=== PATIENT | female | born 1945 | race Native Hawaiian/Other Pacific Islander ===

== ENCOUNTER 2018-05-17 10:01 | Outpatient (CLI) | payer SELFPAY | END 2018-05-17 10:02 | disposition home or self-care (01) | LOC: C.MAMMO 10:01 | DX: Z12.31 Encounter for screening mammogram for malignant neoplasm of breast (principal) ==

== ENCOUNTER 2018-05-22 06:39 | Day surgery (SDC) | payer SELFPAY ==
[2018-01-22 08:57] VITALS: BMI 22.9
[~2018-05-22 06:39] MED LIST: Ciprofloxacin 0.3% OPTH SOLN OS SCH; Cyclopentolate 1% Opth (2 ml) OS SCH; Ketorolac Tromethamine 0.5% Opth Soln (3 ml) OS SCH; Lactated Ringer's 500 ML IV ONE; Phenylephrine 2.5% Opht Soln OS SCH; Tropicamide 0.5% Opht Sol OS SCH
[2018-05-22] MEDS ORDERED: Povidone Iodine Ophthalmic 5% Soln ONE (07:23)
[2018-05-22] MEDS ORDERED: Carbachol 0.01% IO ONE (07:23)
[2018-05-22] MEDS ORDERED: Hyaluronidase Human, Recombi 150 U/ML VIAL ONE (07:24)
[2018-05-22] MEDS ORDERED: Tetracaine 0.5% Ophth (OR ONLY) ONE (07:24)
[2018-05-22] MEDS ORDERED: Chondroitin/Hyaluronate Opth Syringe KIT (0.55 ml-0.5 ml) IO ONE (07:24)
[2018-05-22] MEDS ORDERED: Lidocaine 2% MPF (5 ml) Inj ONE (07:25)
[2018-05-22] MEDS ORDERED: Tropicamide 1% Opht SOLUTION OS ONE (07:30)
[2018-05-22] MEDS ORDERED: Lactated Ringer's 1,000 ML IV ONE (07:56)
[2018-05-22] MEDS ORDERED: Midazolam 2 MG/2 ML VIAL ONE (08:35)
[2018-05-22] MEDS: Tobramycin/Dexamethasone OPHT OINT ONE ×2 (09:07→09:12)
[2018-05-22 09:39] VITALS: RESP 20; O2SAT 99
[2018-05-22 10:31] VITALS: BP 110/57; PULSE 75; TEMP 97.7
--- NOTE | 2018-05-22 20:46 | OP ---
PROCEDURE DATE: 05/22/2018 PREOPERATIVE DIAGNOSIS: Mature cataract, left eye. POSTOPERATIVE DIAGNOSIS: Mature cataract, left eye. OPERATIVE PROCEDURE: Phacoemulsification, left eye, insertion of posterior chamber lens implant. SURGEON: Bib Sorto MD ANESTHESIA TYPE: Local intravenous sedation. DESCRIPTION OF PROCEDURE: The patient was brought into the operating room, placed in supine position, prepped and draped in the usual fashion for ophthalmic surgery. Lid speculum was inserted, lids and exposing globe. A side-port incision was made superiorly and inferiorly with a disposable sharp blade. Anterior chamber was filled with Viscoat. A near clear corneal incision was made temporally with a 2.75-mm keratome. Capsulorrhexis was then performed with Utrata forceps. Hydrodissection carried out with balanced salt solution. Nucleus was phacoemulsified. Remaining cortical fragments were removed with a split irrigation and aspiration system. The capsular sac was filled with Provisc. A posterior chamber lens was then injected into the capsular sac and rotated into horizontal position. Provisc was aspirated out of the anterior chamber. The pupil was constricted with Miochol. The wound was found to be watertight. Topical Betadine, Timoptic, and TobraDex ointment and pressure patch were applied. The patient tolerated the procedure well. Bib Sorto MD
== END 2018-05-22 10:28 | disposition home or self-care (01) ==
LOC: C.SDS 06:39
PROVIDERS: ATTEND Ophthalmology
DX: H25.9 Unspecified age-related cataract (principal)
CPT/HCPCS: 66984; 82948; J2250; J3010; J3470; J7120; V2632

== ENCOUNTER 2018-06-19 05:53 | Day surgery (SDC) | payer SELFPAY ==
[2018-06-03 09:22] VITALS: BMI 21.7
[2018-06-19] MEDS ORDERED: Ofloxacin 0.3% Ophth Soln OD SCH ×2 (06:30)
[2018-06-19] MEDS ORDERED: Cyclopentolate 1% Opth (2 ml) OD SCH (06:30)
[2018-06-19] MEDS ORDERED: Ketorolac Tromethamine 0.5% Opth Soln (3 ml) OD SCH ×2 (06:30)
[2018-06-19] MEDS ORDERED: Tropicamide 1% Opht SOLUTION OD SCH ×2 (06:30)
[2018-06-19] MEDS ORDERED: Phenylephrine 2.5% Opht Soln OD SCH ×2 (06:30)
[2018-06-19] MEDS ORDERED: Lactated Ringer's 1,000 ML IV ONE (06:44)
[2018-06-19] MEDS ORDERED: acetaZOLAMIDE 500 mg SR Cap PO ONE (07:18)
[2018-06-19] MEDS ORDERED: Tetracaine 0.5% Ophth (OR ONLY) ONE (07:20)
[2018-06-19] MEDS ORDERED: Povidone Iodine Ophthalmic 5% Soln ONE (07:20)
[2018-06-19] MEDS ORDERED: Carbachol 0.01% IO ONE (07:20)
[2018-06-19] MEDS ORDERED: Chondroitin/Hyaluronate Opth Syringe KIT (0.55 ml-0.5 ml) IO ONE (07:21)
[2018-06-19] MEDS ORDERED: Lidocaine 2% MPF (5 ml) Inj ONE (07:22)
[2018-06-19] MEDS ORDERED: Hyaluronidase Human, Recombi 150 U/ML VIAL ONE (07:22)
[2018-06-19] MEDS: Tobramycin/Dexamethasone OPHT OINT ONE ×2 (08:19→08:42)
[2018-06-19] MEDS ORDERED: Midazolam 2 MG/2 ML VIAL ONE (08:31)
[2018-06-19 09:09] VITALS: RESP 15; O2SAT 97
[2018-06-19 11:48] VITALS: BP 113/73; PULSE 82; TEMP 97.5
--- NOTE | 2018-06-19 21:06 | OP ---
PROCEDURE DATE: 06/19/2018 PREOPERATIVE DIAGNOSIS: Mature cataract, right eye. POSTOPERATIVE DIAGNOSIS: Mature cataract, right eye. OPERATIVE PROCEDURE: Phacoemulsification, right eye, insertion of posterior chamber lens implant. SURGEON: Bib Sorto MD ANESTHESIA: Local with IV sedation. DESCRIPTION OF PROCEDURE: The patient was brought into the operating room, placed in supine position, prepped and draped in the usual fashion for ophthalmic surgery. Lid speculum was inserted, lids and exposing globe. A side-port incision was made superiorly and inferiorly with a disposable sharp blade. Anterior chamber was filled with Viscoat. A near clear corneal incision was made temporally with a 2.75-mm keratome. Capsulorrhexis was then performed with Utrata forceps. Hydrodissection carried out with balanced salt solution. Nucleus was phacoemulsified. Remaining cortical fragments were removed with a split irrigation and aspiration system. The capsular sac was filled with Provisc. A posterior chamber lens was then injected into the capsular sac and rotated into horizontal position. Provisc was aspirated out of the anterior chamber. The pupil was constricted with Miochol. The wound was found to be watertight. Topical Betadine, Timoptic, and TobraDex ointment and pressure patch were applied. The patient tolerated the procedure well. Bib Sorto MD
== END 2018-06-19 09:47 | disposition home or self-care (01) ==
LOC: C.SDS 05:53
PROVIDERS: ATTEND Ophthalmology
DX: H25.11 Age-related nuclear cataract, right eye (principal); H26.9 Unspecified cataract
CPT/HCPCS: 66984; 82948; J2250; J3010; J3470; J7120; V2632